=== PATIENT | female | born 1995 | race Caucasian/White ===

== ENCOUNTER 2019-02-07 14:59 | Emergency (ER) | payer SELFPAY ==
[~2019-02-07] VITALS: Ht 160 cm; Wt 65.0 kg
[2019-02-07 18:05] VITALS: BP 110/68
== END 2019-02-07 18:07 | disposition home or self-care (01) ==
LOC: ER 16:28
DX: S93.492A Sprain of other ligament of left ankle, initial encounter (principal); X58.XXXA Exposure to other specified factors, initial encounter; Y93.89 Activity, other specified; Y92.89 Other specified places as the place of occurrence of the external cause
CPT/HCPCS: 73610; 99283